=== PATIENT | female | born 1975 | race Caucasian/White ===

== ENCOUNTER 2019-04-28 13:51 | Outpatient (RCR) | payer BC, SELFPAY | END 2019-05-10 23:59 | disposition home or self-care (01) | LOC: WST 13:51 | PROVIDERS: PCP Emergency Medicine; Referring Provider Emergency Medicine; Visit Provider Emergency Medicine | DX: G93.1 Anoxic brain damage, not elsewhere classified (principal); R47.1 Dysarthria and anarthria | CPT/HCPCS: 92507; 92522; 92526 ==

== ENCOUNTER 2019-05-11 06:00 | Outpatient (RCR) | payer BC, SELFPAY | END 2019-06-10 23:59 | disposition home or self-care (01) | LOC: WST 06:00 | PROVIDERS: PCP Emergency Medicine; Referring Provider Emergency Medicine; Visit Provider Emergency Medicine | DX: G93.1 Anoxic brain damage, not elsewhere classified (principal); R47.1 Dysarthria and anarthria | CPT/HCPCS: 92526 ==

== ENCOUNTER 2019-08-19 08:00 | Outpatient (RCR) | payer SELFPAY | END 2019-08-19 09:00 | disposition home or self-care (01) | LOC: WST 08:00 | PROVIDERS: PCP Emergency Medicine; Referring Provider Emergency Medicine; Visit Provider Emergency Medicine | DX: R47.9 Unspecified speech disturbances (principal) | CPT/HCPCS: 92507 ==